=== PATIENT | female | born 2000 | race Caucasian/White ===

== ENCOUNTER 2019-12-06 22:59 | Emergency (ER) | payer MEDICAID ==
[~2019-12-06] VITALS: Ht 157.5 cm; Wt 55.8 kg
[2019-12-06 23:05] VITALS: BP_SYST 112
[2019-12-06] MEDS ORDERED: IPRATROPIUM/ALBUTEROL SULFATE 3 ML AMPUL.NEB (DUONEB) INH ONE (23:15)
[2019-12-06] MEDS ORDERED: methylPREDNISolone SOD SUCC/PF 62.5 MG/ML VIAL IM ONE (23:15)
[2019-12-06] MEDS: methylPREDNISolone SOD SUCC/PF 62.5 MG/ML VIAL IVP ONE (23:55)
[2019-12-07] MEDS ORDERED: IPRATROPIUM BROMIDE 17 mCg/ACTUATION, 12.9 GM AER.W.ADAP INH ONE (00:15)
[2019-12-07] MEDS ORDERED: ALBUTEROL MDI INHALATION 8 GM INH INH ONE (00:15)
[2019-12-07 02:20] VITALS: BP_SYST 106
== END 2019-12-07 02:20 | disposition home or self-care (01) ==
LOC: SED 22:59
DX: R06.02 Shortness of breath (principal); Z20.828 Contact with and (suspected) exposure to other viral communicable diseases; Z88.0 Allergy status to penicillin; Z88.6 Allergy status to analgesic agent
CPT/HCPCS: 71045; 81025; 94640; 96374; 99283; J2930